=== PATIENT | male | born 1935 | race Caucasian/White ===

== ENCOUNTER 2016-09-01 09:07 | Emergency (ER) | payer MEDICARE ==
[~2016-09-01] VITALS: Ht 162.6 cm; Wt 60.3 kg
--- NOTE | 2016-09-01 09:34 | ED GENERAL ADULT ---
History of Present Illness General Chief Complaint: General Adult Stated Complaint: NO SLEEP X 3 DAYS, AND LEFT FLANK PAIN Source: patient, family, old records Exam Limitations: no limitations Vital Signs & Intake/Output Vital Signs & Intake/Output Vital Signs Date Time Temp Pulse Resp B/P Pulse O2 O2 Flow FiO2 Ox Delivery Rate 09/01 1122 98.0 68 18 157/76 100 Room Air 09/01 0914 97.4 76 20 165/79 99 Room Air Allergies Coded Allergies: NO KNOWN ALLERGIES (03/04/13) Reconcile Medications Ascorbic Acid (Vitamin C) 1,000 MG TAB.CHEW 1 TAB PO DAILY SUPPLEMENT ( Reported) Aspirin (Ecotrin*) 81 MG TABLET.DR 1 TAB PO DAILY HEART/BLOOD (Reported) Atorvastatin Calcium 20 MG TABLET 1 TAB PO DAILY CHOLESTEROL (Reported) Cholecalciferol (Vitamin D3) (Vitamin D) 1,000 UNIT TABLET 1 TAB PO DAILY SUPPLEMENT (Reported) Clopidogrel Bisulfate (Clopidogrel) 75 MG TABLET 1 TAB PO DAILY BLOOD THINNER (Reported) Cyanocobalamin (Vitamin B-12) 1,000 MCG TABLET 1 TAB PO DAILY SUPPLEMENT ( Reported) Hydrochlorothiazide 12.5 MG CAPSULE 1 CAP PO DAILY BP (Reported) Hyoscyamine Sulfate (Levsin-Sl) 0.125 MG TAB.SUBL 1-2 TAB SL Q4P PRN abd cramps Irbesartan 300 MG TABLET 1 TAB PO DAILY BP (Reported) Levothyroxine Sodium 50 MCG TABLET 1 TAB PO DAILY THYROID (Reported) Multivitamin (Multi-Day Vitamins) 1 EACH TABLET 1 TAB PO DAILY SUPPLEMENT ( Reported) [place]-3/Dha/Epa/Fish Oil (Fish Oil 1,000 MG Softgel) (Unknown Strength) CAPSULE (Unknown Dose) PO DAILY SUPPLEMENT (Reported) Prednisone (Unknown Strength) TABLET (Unknown Dose) PO AD STEROID (Reported) Zolpidem Tartrate (Ambien) 10 MG TABLET 1 TAB PO QPMP PRN insomnia Triage Note: STATES LAST WEEK STRAINED HIS BACK AND LAST WEDNESDAY WENT TO ORTHO WHO GAVE HIM PREDISONE TAPER BUT HE WASN'T ABLE TO SLEEP ON IT SO STOPPED AFTER THE 5TH DAY. STATES HIS BACK IS OK BUT HE HAS A "STITCH" IN HIS LEFT LOWER ABDOMEN. STATES KNEES ARE WEAK AND LAST NIGHT HE HAD CHILLS WITH SLIGHT NAUSEA Triage Nurses Notes Reviewed? yes Onset: Last week Duration: day(s):, continues in ED, intermittent Timing: recent history Injury Environment: home Severity: mild, moderate No Modifying Factors: none Associated Symptoms: back pain HPI: 1 week prior to admission patient was prescribed steroids for back pain that is now better. 3 days prior to admission he reports being unable to sleep with increased activity. 2 days prior to admission he complains of left-sided abdominal pain described as achy runners cramp occurring intermittently mild nonradiating with no association with or exertion movement. He now complains of chills today. Past History Travel History Traveled to [place] past 21 day No Medical History Any Pertinent Medical History? see below for history Neurological: NONE EENT: NONE Cardiovascular: hypertension, hyperlipidemia Respiratory: pneumonia Gastrointestinal: NONE Hepatic: NONE Renal: NONE Musculoskeletal: NONE Psychiatric: NONE Endocrine: NONE Blood Disorders: NONE Cancer(s): NONE [employer]ATION [employer]EMAN/Reproductive: NONE Influenza Vaccine: 05/17/15 Surgical History Surgical History: CABG Psychosocial History Who do you live with Spouse Services at Home None What is your primary language Khmer Tobacco Use: Never used ETOH Use: denies use Illicit Drug Use: denies illicit drug use Family History Hx Contributory? No Review of Systems Review of Systems Constitutional: Reports: see HPI, chills. EENTM: Reports: no symptoms. Respiratory: Reports: no symptoms. Cardiovascular: Reports: no symptoms. GI: Reports: see HPI, abdominal pain. Genitourinary: Reports: no symptoms. Musculoskeletal: Reports: no symptoms. Skin: Reports: no symptoms. Neurological/Psychological: Reports: see HPI, other. Hematologic/Endocrine: Reports: no symptoms. Immunologic/Allergic: Reports: no symptoms. All Other Systems: Reviewed and Negative Physical Exam Physical Exam General Appearance: well developed/nourished, alert, awake, anxious, mild distress, thin Head: atraumatic, normal appearance Eyes: Bilateral: normal appearance, PERRL, EOMI. Ears, Nose, Throat: normal pharynx, normal ENT inspection Neck: normal inspection, supple, full range of motion, no midline tenderness Respiratory: normal breath sounds, chest non-tender, no respiratory distress, quiet respiration, lungs clear Cardiovascular: regular rate/rhythm, normal peripheral pulses, norml femoral pulses equa Peripheral Pulses: 4+ carotid (R), 4+ carotid (L) Gastrointestinal: normal bowel sounds, soft, non-tender, no organomegaly Back: normal inspection, normal range of motion Extremities: normal inspection, normal capillary refill, normal range of motion, no edema Neurologic/Psych: no motor/sensory deficits, awake, alert, oriented x 3, normal gait, normal mood/affect, administration vice president II-XII nml as tested Reflexes: 2+: bicep (R), bicep (L). Skin: intact, normal color, warm/dry Lymphatic: no anterior cervical vinod Core Measures ACS in differential dx? Yes ASA ordered for poss ACS? No-ACS ruled out CVA/TIA Diagnosis: No Severe Sepsis Present: No Septic Shock Present: No Progress Differential Diagnoses I considered the following diagnoses in my evaluation of the patient: medication reaction diverticulitis pancreatitis renal failure Plan of Care: Orders Procedure Date/time Status URINALYSIS 09/02 927 Complete TSH REFLEX 09/02 927 Complete LIPASE 09/02 927 Complete LACTIC ACID 09/02 927 Complete COMPREHENSIVE METABOLIC PANEL 09/02 927 Complete CBC WITHOUT DIFFERENTIAL 09/02 927 Complete Laboratory Tests 09/01/16 1228: Lactic Acid Cancelled 09/01/16 1042: Urine Color YEL, Urine Clarity CLEAR, Urine pH 6.0, Ur Specific [place] 1.015, Urine Protein NEG, Urine Ketones NEG, Urine Nitrite NEG, Urine Bilirubin NEG, Urine Urobilinogen 0.2, Ur Leukocyte Esterase NEG, Ur Microscopic EXAM NOT REQUIRED, Urine Hemoglobin NEG, Urine Glucose NEG 09/01/16 0943: Anion Gap 10, Estimated GFR 34 L, BUN/Creatinine Ratio 30.0 H, Glucose 91, Lactic Acid 1.1, Calcium 9.9, Total Bilirubin 0.8, AST 20, ALT 33, Alkaline Phosphatase 56, Total Protein 7.0, Albumin 4.4, Globulin 2.6, Albumin/Globulin Ratio 1.7, Lipase 947 H, TSH &T3 &Free T4 Intrp 0.755, CBC w Diff NO MAN DIFF REQ, RBC 5.02, MCV 90.5, MCH 30.2, RDW 13.9, MPV 8.2, Gran % 76.2 H, Lymphocytes % 15.2 L, Monocytes % 8.0, Eosinophils % 0.2, Basophils % 0.4, Absolute Granulocytes 9.1 H, Absolute Lymphocytes 1.8, Absolute Monocytes 1.0 H, Absolute Eosinophils 0, Absolute Basophils 0.1, PUBS MCHC 33.4 Diagnostic Imaging: Viewed by Me: CT Scan. Discussed w/RAD: CT Scan. Radiology Impression: 1. No evidence of pancreatitis. 2. No acute findings along the gastrointestinal tract. The appendix is normal. There is an intact rectosigmoid anastomosis. 3. Status post cholecystectomy and prostatectomy. Initial ED EKG: none Departure Departure Time of Disposition: 1313 Disposition: HOME OR SELF CARE Condition: Stable Clinical Impression Primary Impression: Adverse drug reaction Secondary Impressions: Chronic renal insufficiency Qualifiers: Chronic kidney disease stage: stage 2 (mild) Qualified Code: N18.2 - Chronic kidney disease, stage 2 (mild) Elevated lipase Referrals: SHIRA SORENSEN,DONOVAN Drake (PCP/Family) Departure Forms: Customer Survey General Discharge Information Prescriptions: Current Visit Scripts Zolpidem Tartrate (Ambien) 1 TAB PO QPMP PRN insomnia #30 TAB Hyoscyamine Sulfate (Levsin-Sl) 1-2 TAB SL Q4P PRN abd cramps #60 TAB Critical Care Note Critical Care Note Critical Care Time: non-applicable
[2016-09-01 09:54] LABS: ABSOLUTE BASOPHIL COUNT 0.1 /CUMM (0.0-0.2); ABSOLUTE EOSINOPHIL COUNT 0 /CUMM (0.0-0.7); ABSOLUTE GRANULOCYTE CT 9.1 /CUMM (1.4-6.5); ABSOLUTE LYMPH COUNT 1.8 /CUMM (1.2-3.4); BASOPHIL % 0.4 % (0.0-2.0); EOSINOPHIL % 0.2 % (0-5); HEMATOCRIT 45.4 % (42-52); MEAN CORPUSCULAR HGB 30.2 PG (27.0-31.0); MEAN CORPUSCULAR HGB CONC 33.4 G/DL (33.0-37.0); MEAN CORPUSCULAR VOLUME 90.5 FL (80.0-94.0); MEAN PLATELET VOLUME 8.2 FL (7.4-10.4); RBC DISTRIBUTION WIDTH 13.9 % (11.5-14.5); RED BLOOD CELL CT 5.02 /CUMM (4.70-6.10)
[2016-09-01 10:19] LABS: GRANULOCYTE % 76.2 % (42.2-75.2); PLATELET COUNT 235 /CUMM (130-400)
[2016-09-01 11:22] VITALS: BP 157/76
--- NOTE | 2016-09-01 12:52 | CT SCAN REPORT ---
EXAMINATION: CT ABDOMEN AND PELVIS WITHOUT CONTRAST CLINICAL INFORMATION: Left flank pain. Elevated lipase level. COMPARISON: None TECHNIQUE: Multidetector volumetric imaging was performed from the superior aspect of the liver through the pubic symphysis. Sagittal and coronal reformatted images were obtained on the technologist's workstation. DLP: 244 mGy-cm FINDINGS: LUNG BASES: Lung bases are clear. There is atherosclerotic calcification of coronary arteries. A stent of the posterior descending coronary artery is noted. LIVER, GALLBLADDER, AND BILIARY TREE: Liver has normal size, contour and attenuation. No suspicious hepatic lesion or intrahepatic bile duct dilatation observed on these noncontrast images. Gallbladder is surgically absent. PANCREAS: There is [id number] atrophy and partial fatty replacement of the pancreas. No pancreatic ductal dilatation or peripancreatic edema. SPLEEN: Unremarkable. ADRENAL GLANDS: Unremarkable. KIDNEYS AND URETERS: Kidneys have normal size, cortical thickness and attenuation. No nephrolithiasis or hydronephrosis. A simple appearing cortical cyst of the right lower pole measures up to 3.4 cm maximum dimension. The ureters are unremarkable. BLADDER: Unremarkable. GASTROINTESTINAL TRACT: Stomach is unremarkable. Loops of bowel are normal in caliber. The appendix is normal. There is an intact rectosigmoid anastomosis. No evidence of acute inflammation or obstruction along the gastrointestinal tract. No ascites or pneumoperitoneum. ABDOMINAL WALL: No acute findings. No abdominal wall mass or significant hernia. LYMPH NODES: No pathologic sized lymph nodes within the abdomen or pelvis. VASCULAR: There is [id number] atherosclerotic calcification of the abdominal aorta without aneurysm. No retroperitoneal hematoma. PELVIC VISCERA: Surgical changes from prostatectomy. No pelvic soft tissue mass or free fluid. A few phleboliths are present in the lower pelvis. OSSEOUS STRUCTURES: Chondrocalcinosis of the degenerated pubic symphysis, hips, sacroiliac joints and spine. Within the lumbar spine, disc degenerative change is most advanced at L5-S1 and there is minimal retrolisthesis of L5 on S1. No aggressive osseous lesions. IMPRESSION: 1. No evidence of pancreatitis. 2. No acute findings along the gastrointestinal tract. The appendix is normal. There is an intact rectosigmoid anastomosis. 3. Status post cholecystectomy and prostatectomy.
[2016-09-01] MEDS ORDERED: HYDROCHLOROTH12.5 M3 PO (13:13)
[2016-09-01] MEDS ORDERED: LEVOTHYROXINE50 MCG PO (13:13)
[2016-09-01] MEDS ORDERED: ATORVASTATIN CA20 M1 PO (13:13)
[2016-09-01] MEDS ORDERED: IRBESARTAN300 M1 PO (13:13)
[2016-09-01] MEDS ORDERED: FISH OIL 1,0001 EAC2 PO (13:14)
[2016-09-01] MEDS ORDERED: ASPIRIN EC81 M1 PO (13:14)
[2016-09-01] MEDS ORDERED: CLOPIDOGREL75 M1 PO (13:14)
[2016-09-01] MEDS ORDERED: VITAMIN D1000 UNIT PO (13:15)
[2016-09-01] MEDS ORDERED: MULTI-DAY VITA1 EACH PO (13:15)
[2016-09-01] MEDS ORDERED: VITAMIN C1000 M2 PO (13:15)
[2016-09-01] MEDS ORDERED: VITAMIN B-121000 MC3 PO (13:15)
[2016-09-01] MEDS ORDERED: PREDNISONE10 M2 PO (13:16)
[2016-09-01] MEDS ORDERED: LEVSIN-SL0.125 MG SL (13:23)
[2016-09-01] MEDS ORDERED: AMBIEN10 M1 PO (13:23)
== END 2016-09-01 13:51 ==
LOC: ERH 09:07
PROVIDERS: Emergency Medicine
DX: T38.0X5A Adverse effect of glucocorticoids and synthetic analogues, initial encounter (principal); N18.9 Chronic kidney disease, unspecified; R74.8 Abnormal levels of other serum enzymes
CPT/HCPCS: 74176; 81003